=== PATIENT | female | born 1985 | race Caucasian/White ===

== ENCOUNTER 2024-02-10 17:45 | Emergency (ER) | payer BC ==
[2024-02-10] MEDS: Ibuprofen 200 MG Tab PO ONE (18:07)
== END 2024-02-10 18:45 | disposition home or self-care (01) ==
LOC: VM.ED 17:45
DX: S61.211A Laceration without foreign body of left index finger without damage to nail, initial encounter (principal); W20.8XXA Other cause of strike by thrown, projected or falling object, initial encounter; Y92.007 Garden or yard of unspecified non-institutional (private) residence as the place of occurrence of the external cause; Y93.H2 Activity, gardening and landscaping
CPT/HCPCS: 12001; 73140; 99283; A9270